=== PATIENT | female | born 1960 | race Caucasian/White ===

== ENCOUNTER 2025-03-19 09:59 | Inpatient (IN) | payer OTHER ==
[2025-03-19] MEDS ORDERED: MORPHINE 4 MG/ML SYR ONE (10:24)
[2025-03-19] MEDS ORDERED: ONDANSETRON 4 MG/2 ML VIAL ONE (10:24)
[2025-03-19 10:37] LABS: Absolute Lymphocytes (CBC) 1.7 K/uL (0.7-4.9); Hematocrit 42.6 % (36.0-45.0); Hemoglobin 14.8 g/dL (12.0-15.0); MCH 34.1 pg (27.0-35.0); MCHC 34.8 g/dL (32.0-36.0); MCV 98.0 fL (80-100); MPV 7.2 fL (7.6-11.3); Nucleated RBC Absolute Count 0.0 (0-0); Nucleated Red Blood Cells % 0.0 % (0-0); RBC Red Blood Cell Count 4.35 M/uL (3.86-4.86); White Blood Count 7.80 thou/uL (4.3-10.9)
--- NOTE | 2025-03-19 10:47 | RAD REPORT ---
EXAM: Chest Single View HISTORY: 65 years Female right rib pain COMPARISON: No prior exams FINDINGS: LUNGS/PLEURA: The lungs are clear. No pleural effusions or pneumothorax. No pulmonary edema. CARDIAC/MEDIASTINUM: The cardiac silhouette is within normal limits. UPPER ABDOMEN: No significant abnormality. BONES: No acute abnormality. LINES/TUBES/OTHER: N/A IMPRESSION: No evidence of acute cardiopulmonary disease.
[2025-03-19 10:54] LABS: ALT/SGPT 33.0 U/L (13-56); AST/SGOT 19.0 U/L (15-37); Albumin 3.6 g/dL (3.4-5.0); Albumin/Globulin Ratio 1.1 (1.1-1.8); Alkaline Phosphatase 82.0 U/L (45-117); Anion Gap 7.2 mEq/L (5.0-15.0); BUN Blood Urea Nitrogen 11.0 mg/dL (7-18); Globulin 3.3 g/dL (2.3-3.5); Glucose Level 115.0 mg/dL (74-106); Lipase 71.0 U/L (13-75); Potassium 3.2 mEq/L (3.5-5.1)
--- NOTE | 2025-03-19 11:16 | RAD REPORT ---
Abdomen Exam Limited: 03/19/2025 11:05 AM CLINICAL HISTORY: ruq pain STUDY: Limited right upper quadrant ultrasound of abdomen. COMPARISON: None. FINDINGS: Liver: Limited evaluation. Hepatic steatosis noted. Bile ducts: No intrahepatic or extrahepatic biliary ductal dilatation. Common bile duct measures 4 mm. Gallbladder: Gallstone in the region of the gallbladder neck. Gallbladder is mildly distended. Gallbl adder wall is borderline thickened. No pericholecystic fluid. No sonographic Pozo sign was reported. IMPRESSION: Cholelithiasis with stone impacted at the gallbladder neck. No sonographic Pozo sign, significant g allbladder wall thickening, or pericholecystic fluid. No overt evidence of acute cholecystitis though early/mild acute cholecystitis would be difficult to exclude. HIDA scan could confirm cystic d uct patency.
[2025-03-19 11:37] LABS: Sqamous Epithelial <5 /HPF (None Seen); Urine Culture Reflex Order NOT NEEDED; Urine Microscopic Reflex YN ORDER UMIC
[2025-03-19] MEDS ORDERED: NA CHLORIDE 0.9% 100 ML ONE (11:55)
[2025-03-19] MEDS ORDERED: PIPERACIL/TAZO 3.375 GM VIAL IV ONE (11:55)
[2025-03-19] MEDS ORDERED: MORPHINE 2 MG/ML SYR ONE (11:55)
[2025-03-19] MEDS ORDERED: NA CHLORIDE 0.9% 1,000 ML ONE (11:55)
--- NOTE | 2025-03-19 11:57 | ER ---
Nurse's Notes [facility] Name: Radha Moralez Age: 65 yrs Sex: Female : 1960 Arrival Date: 03/19/2025 Time: 09:59 Bed 18 Private MD: Diagnosis: Other cholelithiasis without obstruction;Chest pain, unspecified Presentation: 03/19 10:09 Chief complaint: Patient states: R FLANK PAIN x5 DAYS. Coronavirus screen: At this bp time, the client does not indicate any symptoms associated with coronavirus-19. Ebola Screen: No symptoms or risks identified at this time. Initial Sepsis Screen: Does the patient meet any 2 criteria? No. Patient's initial sepsis screen is negative. Does the patient have a suspected source of infection? No. Patient's initial sepsis screen is negative. Risk Assessment: Do you want to hurt yourself or someone else? Patient reports no desire to harm self or others. Onset of symptoms is unknown. 10:09 Method Of Arrival: Ambulatory bp 10:09 Acuity: WILL 3 bp Historical: - Allergies: 10:09 No Known Allergies; bp - Home Meds: 10:09 aspirin 81 mg Oral tablet daily [Active]; Ozempic 2 mg/dose (8 mg/3 mL) subcutaneous bp Pen Injector 2 mg every week [Active]; olmesartan-hydrochlorothiazide 40-12.5 mg oral tablet 1 tab daily [Active]; atorvastatin 10 mg oral tablet 1 tab daily [Active]; - PMHx: 10:09 Hypertensive disorder; bp - PSHx: 10:09 Appendectomy; bp - Immunization history:: Adult Immunizations up to date. - Infectious Disease History:: Denies. - Social history:: Smoking status: Patient reports the use of cigarette tobacco products, unknown amount. Screenin:15 [facility] ED Fall Risk Assessment (Adult) History of falling in the last 3 months, me1 including since admission No falls in past 3 months (0 pts) Confusion or Disorientation No (0 pts) Intoxicated or Sedated No (0 pts) Impaired Gait No (0 pts) Mobility Assist Device Used No (0 pt) Altered Elimination No (0 pt) Score/Fall Risk Level 0 - 2 = Low Risk Maintained a safe environment, Provided non-skid footwear, Hourly rounding (assess needs \T\ fall precautionary measures) done. Abuse screen: Denies threats or abuse. Nutritional screening: No deficits noted. Tuberculosis screening: No symptoms or risk factors identified. Assessment: 10:15 General: Appears uncomfortable, ill, well groomed, well developed, well nourished, me1 Behavior is calm, cooperative, appropriate for age, Reports R FLANK PAIN x5 DAYS. Pain: Complains of pain in right upper quadrant Pain radiates to right flank Pain currently is 6 out of 10 on a pain scale. Quality of pain is described as sharp, Pain began 5 days ago Is continuous. Neuro: Level of Consciousness is awake, alert, obeys commands, Oriented to person, place, time, situation, Appropriate for age. Cardiovascular: Patient's skin is warm and dry. Respiratory: Airway is patent Respiratory effort is even, unlabored, Respiratory pattern is regular, symmetrical. GI: Abdomen is non-distended, Reports upper abdominal pain, nausea, since 5 days ago. : No signs and/or symptoms were reported regarding the genitourinary system. EENT: No signs and/or symptoms were reported regarding the EENT system. Derm: Skin is intact, is healthy with good turgor, Skin is pink, warm \T\ dry. Musculoskeletal: No signs and/or symptoms reported regarding the musculoskeletal system. Circulation, motion, and sensation intact. Range of motion: intact in all extremities. Vital Signs: 10:09 BP 146 / 72; Pulse 79; Resp 16; Temp 97.6; Pulse Ox 100% ; Weight 102.51 kg; Height 5 bp ft. 8 in. ; 11:00 BP 111 / 53; Pulse 72; Resp 18; Pulse Ox 94% ; me1 12:00 BP 108 / 58; Pulse 66; Resp 18; Pulse Ox 97% ; me1 13:00 BP 113 / 55; Pulse 64; Resp 15; Pulse Ox 92% on R/A; me1 14:00 BP 118 / 62; Pulse 60; Resp 16; Pulse Ox 93% on R/A; me1 10:09 Body Mass Index 34.36 (102.51 kg, 172.72 cm) bp ED Course: 10:02 Patient arrived in ED. im 10:02 Hieu Sen MD is Attending Physician. jr11 10:09 Triage completed. bp 10:09 Arm band placed on. bp 10:15 Patient has correct armband on for positive identification. Bed in low position. Call me1 light in reach. Side rails up X2. Provided Education on: POC. Verbalized understanding.. Client placed on continuous cardiac and pulse oximetry monitoring. NIBP monitoring applied. phototypesetting equipment monitor on. Pulse ox on. NIBP on. 10:15 No provider procedures requiring assistance completed. me1 10:19 Juanita Matthew, RN is Primary Nurse. me1 10:33 Initial lab(s) drawn, by me, sent to lab. Inserted saline lock: 22 gauge in right me1 antecubital area, using aseptic technique. 10:38 Chest Single View XRAY In Process Unspecified. EDMS 11:07 US Abdomen Limited In Process Unspecified. EDMS 11:15 Urine collected: clean catch specimen, cloudy. me1 11:47 EKG done, by ED staff, reviewed by Hieu Sen MD. me1 11:51 BNP Sent. me1 11:51 Troponin High Sensitivity Sent. me1 11:55 Brandyn Jimenez MD is Hospitalizing Provider. jr11 14:06 Patient admitted, IV remains in place. me1 Administered Medications: 10:31 Drug: Ondansetron IVP 4 mg IVP once; over 2 minutes Route: IVP; Site: right antecubital;me1 10:53 Follow up: Response: No adverse reaction; Nausea is decreased me1 10:31 Drug: morphine IVP or IV 4 mg IVP once over 4 mins Route: IVP; Infused Over: 4 mins; me1 Site: right antecubital; 10:53 Follow up: Response: No adverse reaction; Pain is decreased me1 12:05 Drug: Piperacillin-Tazobactam IVPB 3.375 grams IVPB once over 60 mins; (mix in NS 100 me1 mL) Route: IVPB; Infused Over: 60 mins; Site: right antecubital; 14:06 Follow up: Response: No adverse reaction; IV Status: Completed infusion me1 12:05 Drug: morphine IVP or IV 2 mg IVP once over 4 mins Route: IVP; Infused Over: 4 mins; me1 Site: right antecubital; 12:23 Follow up: Response: No adverse reaction; Pain is decreased me1 12:05 Drug: NS 0.9% IV 1000 ml IV at 1000 ml once; to be given as a bolus over 60 minutes me1 Route: IV; Rate: 1000 ml; Site: right antecubital; 14:06 Follow up: Response: No adverse reaction; IV Status: Completed infusion me1 Medication: 10:15 VIS not applicable for this client. me1 Outcome: 11:56 Decision to Hospitalize by Provider. lacey 14:06 Admitted to Med/surg accompanied by tech, via wheelchair, room 212, with chart, Report me1 called to tubed up by COREY Beckham, charge nurse 14:06 Condition: stable 14:06 Instructed on the need for admit, 14:07 Patient left the ED. me1 Signatures: Dispatcher [employer] EDClay Sherwood RN RN Hieu Sen MD MD jr11 Brenda Perez Michelle, RN RN me1 Corrections: (The following items were deleted from the chart) 12:24 10:09 Chief complaint: Patient states: R FLANK PAIN x5 DAYS bp me1
--- NOTE | 2025-03-19 11:57 | EDPHYS ---
Physician Documentation [facility] Name: Radha Moralez Age: 65 yrs Sex: Female : 1960 Arrival Date: 03/19/2025 Time: 09:59 Bed 18 Private MD: WATSON Physician Hieu Sen HPI: 03/19 10:16 Chief Complaint: Discomfort under the right breast, extending to the back. History of jr11 Present Illness: The patient presents with discomfort under the right breast, which extends to the back. The discomfort began on Saturday and has been progressively worsening. The patient denies any previous episodes of similar pain. The pain is not influenced by eating. The patient reports taking ibuprofen, which provides some relief but does not eliminate the pain. The patient experienced nausea this morning but has not vomited. Bowel movements are normal, and there is no pain or increased frequency when urinating. Review of Systems: - Positive for nausea this morning. - Reports not having vomiting, abnormal bowel movements, painful or frequent urination, or cough. - ROS otherwise negative. . Historical: - Allergies: 10:09 No Known Allergies; bp - Home Meds: 10:09 aspirin 81 mg Oral tablet daily [Active]; Ozempic 2 mg/dose (8 mg/3 mL) subcutaneous bp Pen Injector 2 mg every week [Active]; olmesartan-hydrochlorothiazide 40-12.5 mg oral tablet 1 tab daily [Active]; atorvastatin 10 mg oral tablet 1 tab daily [Active]; - PMHx: 10:09 Hypertensive disorder; bp - PSHx: 10:09 Appendectomy; bp - Immunization history:: Adult Immunizations up to date. - Infectious Disease History:: Denies. - Social history:: Smoking status: Patient reports the use of cigarette tobacco products, unknown amount. Exam: 10:16 Constitutional: This is a well developed, well nourished patient who is awake, alert, jr11 and in no acute distress. Head/Face: Normocephalic, atraumatic. Eyes: Extra-ocular motions intact. Lids and lashes normal. Conjunctiva and sclera are non-icteric and not injected. Cornea within normal limits. Periorbital areas with no swelling, redness, or edema. ENT: Nares patent. No nasal discharge, no septal abnormalities noted. Oropharynx with no redness, swelling, or masses, exudates, or evidence of obstruction, uvula midline. Mucous membranes moist. Chest/axilla: Normal chest wall appearance and motion. Nontender with no deformity. No lesions are appreciated. Cardiovascular: Regular rate and rhythm with a normal S1 and S2. No gallops, murmurs, or rubs. Normal PMI, no JVD. No pulse deficits. Respiratory: Lungs have equal breath sounds bilaterally, clear to auscultation and percussion. No rales, rhonchi or wheezes noted. No increased work of breathing, no retractions or nasal flaring. Abdomen/GI: TTP RUQ no peritoneal signs Back: No spinal tenderness. No costovertebral tenderness. Full range of motion. Skin: Warm, dry with normal turgor. Normal color with no rashes, no lesions, and no evidence of cellulitis. MS/ Extremity: Pulses equal, no cyanosis. Neurovascular intact. Full, normal range of motion. Neuro: Awake and alert, GCS 15, oriented to person, place, time, and situation. No gross motor or sensory deficits. Vital Signs: 10:09 BP 146 / 72; Pulse 79; Resp 16; Temp 97.6; Pulse Ox 100% ; Weight 102.51 kg; Height 5 bp ft. 8 in. ; 11:00 BP 111 / 53; Pulse 72; Resp 18; Pulse Ox 94% ; me1 12:00 BP 108 / 58; Pulse 66; Resp 18; Pulse Ox 97% ; me1 13:00 BP 113 / 55; Pulse 64; Resp 15; Pulse Ox 92% on R/A; me1 14:00 BP 118 / 62; Pulse 60; Resp 16; Pulse Ox 93% on R/A; me1 10:09 Body Mass Index 34.36 (102.51 kg, 172.72 cm) bp MDM: 10:08 Medical Screening Exam initiated jr11 10:16 Differential diagnosis: Medical Decision Makin. Gallbladder disease: Likely due to jr11 the localization of pain and exacerbation after eating, further testing required. 2. Shingles: Unlikely without rash or typical dermatomal pain but considered due to location of pain. 3. Musculoskeletal pain: Possible due to the nature of the pain, requires ruling out other causes. 4. Peptic ulcer disease: Less likely without specific gastrointestinal symptoms but considered due to abdominal pain. Plan: - Conduct diagnostic imaging and tests to assess the gallbladder. - Consider pain management options. - Monitor symptoms for any changes. - Follow-up consultation based on test results. Data reviewed: vital signs, nurses notes. 11:53 ED course: Dr Garcia will do surgery tomorrow admitted Tony, EKG interpreted by me shows jrBrendan left axis deviation normal axis normal intervals no acute ST changes. ED course: Ultrasound interpreted by me shows gallstone.. 03/19 10:10 Order name: CBC with Diff; Complete Time: 11:20 [facility] 03/19 10:10 Order name: CMP; Complete Time: 11:20 [facility] 03/19 10:10 Order name: Lipase; Complete Time: 11:20 [facility] 03/19 10:16 Order name: UA Rfx Evert Cult if indicated; Complete Time: 11:38 [facility] 03/19 11:39 Order name: Troponin High Sensitivity [facility] 03/19 11:39 Order name: BNP [facility] 03/19 13:07 Order name: Basic Metabolic Panel EDMS 03/19 13:07 Order name: Basic Metabolic Panel EDMS 03/19 13:07 Order name: Basic Metabolic Panel EDMS 03/19 13:07 Order name: Basic Metabolic Panel EDMS 03/19 13:07 Order name: CBC with Automated Diff EDMS 03/19 13:07 Order name: CBC with Automated Diff EDMS 03/19 13:07 Order name: CBC with Automated Diff EDMS 03/19 13:07 Order name: CBC with Automated Diff EDMS 03/19 13:07 Order name: Lipid Profile EDMS 03/19 13:07 Order name: Lipid Profile EDMS 03/19 13:07 Order name: Magnesium EDMS 03/19 13:07 Order name: Magnesium EDMS 03/19 13:07 Order name: Magnesium EDMS 03/19 13:07 Order name: Magnesium EDMS 03/19 13:07 Order name: Phosphorus EDMS 03/19 13:07 Order name: Phosphorus EDMS 03/19 13:07 Order name: Phosphorus EDMS 03/19 13:07 Order name: Phosphorus EDMS 03/19 13:07 Order name: T4 Free EDMS 03/19 13:07 Order name: T4 Free EDMS 03/19 13:07 Order name: Thyroid Stimulating Hormone EDMS 03/19 13:08 Order name: Thyroid Stimulating Hormone EDMS 03/19 10:10 Order name: US Abdomen Limited; Complete Time: 11:20 jr11 03/19 10:10 Order name: Chest Single View XRAY; Complete Time: 11:20 [facility] 03/19 13:07 Order name: CONS Physician Consult [facility] 03/19 10:10 Order name: IV Saline Lock; Complete Time: 11:54 11 03/19 10:10 Order name: Labs collected and sent; Complete Time: 11:54 11 Administered Medications: 10:31 Drug: Ondansetron IVP 4 mg IVP once; over 2 minutes Route: IVP; Site: right antecubital;me1 10:53 Follow up: Response: No adverse reaction; Nausea is decreased me1 10:31 Drug: morphine IVP or IV 4 mg IVP once over 4 mins Route: IVP; Infused Over: 4 mins; me1 Site: right antecubital; 10:53 Follow up: Response: No adverse reaction; Pain is decreased me1 12:05 Drug: Piperacillin-Tazobactam IVPB 3.375 grams IVPB once over 60 mins; (mix in NS 100 me1 mL) Route: IVPB; Infused Over: 60 mins; Site: right antecubital; 14:06 Follow up: Response: No adverse reaction; IV Status: Completed infusion me1 12:05 Drug: morphine IVP or IV 2 mg IVP once over 4 mins Route: IVP; Infused Over: 4 mins; me1 Site: right antecubital; 12:23 Follow up: Response: No adverse reaction; Pain is decreased me1 12:05 Drug: NS 0.9% IV 1000 ml IV at 1000 ml once; to be given as a bolus over 60 minutes me1 Route: IV; Rate: 1000 ml; Site: right antecubital; 14:06 Follow up: Response: No adverse reaction; IV Status: Completed infusion me1 Disposition Summary: 03/19/25 11:56 Hospitalization Ordered Notes: Hospitalization Status: Observation jr11 Provider: Brandyn Jimenez [facility] Location: Telemetry/MedSurg (observation) [facility] Condition: Stable jr11 Problem: an acute exacerbation jr11 Symptoms: are unchanged jr11 Bed/Room Type: Standard [facility] Room Assignment: 212(03/19/25 13:15) em1 Diagnosis - Other cholelithiasis without obstruction jr11 - Chest pain, unspecified jr11 Forms: - Medication Reconciliation Form jr11 - SBAR form jr11 - Leadership Thank You Letter jr11 Signatures: Dispatcher [employer] EDVinnie Catalan em1 Clay Malik, RN RN Hieu Sen MD MD jr11 Juanita Matthew RN RN me1 Corrections: (The following items were deleted from the chart) 10:17 10:17 UA Rfx Evert Cult if indicated+U.LAB.BRZ ordered. EDMS EDMS 11:39 11:39 Troponin High Sensitivity+C.LAB.BRZ ordered. EDMS EDMS 11:39 11:39 PROBNP+C.LAB.BRZ ordered. EDMS EDMS 13:15 11:56 jr11 em1
[2025-03-19] MEDS ORDERED: SODIUM CHLORIDE 0.9% 10ML INJ IV PRN (13:00)
[2025-03-19] MEDS ORDERED: ONDANSETRON 4 MG/2 ML VIAL IV PRN (13:00)
[2025-03-19] MEDS ORDERED: ACETAMINOPHEN 325 MG TABLET PO PRN (13:00)
[2025-03-19 14:29] VITALS: BMI 34.3
--- NOTE | 2025-03-19 15:02 | P.HP ---
Certification for Inpatient Patient admitted to: Observation With expected LOS: <2 Midnights Patient will require the following post-hospital care: None Practitioner: I am a practitioner with admitting privileges, knowledge of patient current condition, hospital course, and medical plan of care. Services: Services provided to patient in accordance with Admission requirements found in Title 42 Section 412.3 of the Code of Federal Regulations <Veena Lua - Last Filed: 03/19/25 14:52> Patient History Date of Service: 03/19/25 Reason for admission: Acute cholecystitis History of Present Illness: Radha Moralez is a 65 year old female with Pmhx HTN, HLD, DM- IDDM, Smoking abuse who presents to the ED with chief complaint of Abdominal pain associated with nausea, vomiting, and inability to sleep since Saturday. She reports eating a yogurt this morning and did not feel well eating it. On evaluation, RUQ tender to palpation, she is lethargic and uncomfortable. Laboratory evaluation significant for T. bili 1.2, potassium 3.2, serum glucose 115. Chest x-ray report "No evidence of acute cardiopulmonary disease." Ultrasound abdomen reports "Cholelithiasis with stone impacted at the gallbladder neck. No sonographic Pozo sign, significant gallbladder wall thickening, or pericholecystic fluid. No overt evidence of acute cholecystitis though early/mild acute cholecystitis would be difficult to exclude. HIDA scan could confirm cystic duct patency." Radha be admitted to the hospital service for further evaluation and treatment of acute cholecystitis, Dr. WASHINGTON Seph consulted - Past Medical/Surgical History Has patient received pneumonia vaccine in the past: No -: Htn -: HLD -: DM type 2 -: Smoking abuse -: Appendectomy -: L lymphectomy - Family History Family History: Reviewed- Non-Contributory - Social History Smoking Status: Current every day smoker Alcohol use: No CD- Drugs: No Place of Residence: Home <Veena Lua - Last Filed: 03/19/25 14:52> Date of Service: 03/19/25 <Brandyn Jimenez - Last Filed: 03/19/25 19:28> Allergies No Known Allergies Allergy (Unverified 03/19/25 13:00) Review of Systems Other: per HPI <Veena Lua - Last Filed: 03/19/25 14:52> Physical Examination - Vital Signs Temperature: 97.6 F Blood Pressure: 118/62 Pulse: 60 Respirations: 16 - Physical Exam General: Alert, Oriented x3, Other (drowsy) HEENT: Atraumatic, Normocephalic Neck: Supple, 2+ carotid pulse no bruit Respiratory: Clear to auscultation bilaterally, Normal air movement Cardiovascular: Normal pulses, Regular rate/rhythm, Normal S1 S2 Gastrointestinal: Normal bowel sounds, Other (Soft on palpation), Tenderness Musculoskeletal: No clubbing Integumentary: No rashes Neurological: Normal speech, Normal tone - Studies Laboratory Data (last 24 hrs) 03/19/25 03/19/25 10:30 10:30 WBC 7.80 Hgb 14.8 Hct 42.6 Plt Count 247 Sodium 137 Potassium 3.2 L BUN 11 Creatinine 0.80 Glucose 115 H Total Bilirubin 1.2 H AST 19 ALT 33 Alkaline Phosphatase 82 Lipase 71 <Veena Lua - Last Filed: 03/19/25 14:52> - Studies Laboratory Data (last 24 hrs) 03/19/25 03/19/25 10:30 10:30 WBC 7.80 Hgb 14.8 Hct 42.6 Plt Count 247 Sodium 137 Potassium 3.2 L BUN 11 Creatinine 0.80 Glucose 115 H Total Bilirubin 1.2 H AST 19 ALT 33 Alkaline Phosphatase 82 Lipase 71 <Brandyn Jimenez - Last Filed: 03/19/25 19:28> Assessment and Plan - Plan Assessment and Plan Acute cholecystitis -Dr. Freeman consulted -NPO to rest the digestive system, will re-evaluate in the AM -Zosyn IV -pain control -zofran -Monitor LFT - gentle IVF Hypokalemia -K 3.2 -Replace IV -Monitor in AM labs DM- IDDM -A1C in the AM -Will hold insulin while NPO -currently takes ozempic HTN HLD Smoking abuse -Continue home medication as appropriate, when taking PO DVT ppx SCD Full code LOS 24 hour OBS Discharge Plan: Home Plan to discharge in: 24 Hours - Advance Directives Does patient have a Living Will: Yes Does patient have a Durable POA for Healthcare: Yes Time Spent Managing Pts Care (In Minutes): 55 <Veena Lua - Last Filed: 03/19/25 14:52> Physician Review: Patient Assessed, Agree with Above Assessment and Plan <Brandyn Jimenez - Last Filed: 03/19/25 19:28>
[2025-03-19] MEDS: NA CHLORIDE 0.9% 1,000 ML IV SCH (15:31)
[2025-03-19] MEDS: KCL 20 MEQ/100 mL IVPB 20 MEQ/100 ML BAG IV SCH (16:18)
--- NOTE | 2025-03-19 17:01 | P.CNS ---
Date of Consult: 03/19/25 Chief Complaint: Acute cholecystitis History of Present Illness: Patient with PMH of HTN, HLD presented with abdominal pain, RUQ for the last few days, denies chest pain, no palpitations, no syncope, no breathing problems. Allergies No Known Allergies Allergy (Unverified 03/19/25 13:00) Home medications list reviewed: Yes Home Medications: Aspirin 1 tab PO DAILY 03/19/25 Atorvastatin Calcium 1 tab PO DAILY 03/19/25 Olmesartan/Hydrochlorothiazide [Olmesartan-Hctz 40-12.5 mg Tab] 1 each PO DAILY 03/19/25 Semaglutide [Ozempic] 2 mg SQ EVERY 7TH DAY 03/19/25 - Past Medical/Surgical History -: Htn -: HLD -: DM type 2 -: Smoking abuse -: Appendectomy -: L lymphectomy - Social History Smoking Status: Current every day smoker Alcohol use: No CD- Drugs: No Place of Residence: Home Review of Systems 10-point ROS is otherwise unremarkable Physical Examination Temp Pulse Resp BP Pulse Ox 98.0 F 62 12 145/67 H 100 03/19/25 16:00 03/19/25 16:00 03/19/25 16:00 03/19/25 16:00 03/19/25 16:00 General: Alert, In no apparent distress HEENT: Atraumatic, PERRLA, Mucous membr. moist/pink, EOMI, Sclerae nonicteric Neck: Supple, 2+ carotid pulse no bruit, No LAD, Without JVD or thyroid abnormality Respiratory: Clear to auscultation bilaterally, Normal air movement Cardiovascular: Regular rate/rhythm, Normal S1 S2 Gastrointestinal: Normal bowel sounds, No tenderness Musculoskeletal: No tenderness Integumentary: No rashes Neurological: Normal gait, Normal speech, Normal tone, Normal affect Lymphatics: No axilla or inguinal lymphadenopathy Laboratory Data (last 24 hrs) 03/19/25 03/19/25 10:30 10:30 WBC 7.80 Hgb 14.8 Hct 42.6 Plt Count 247 Sodium 137 Potassium 3.2 L BUN 11 Creatinine 0.80 Glucose 115 H Total Bilirubin 1.2 H AST 19 ALT 33 Alkaline Phosphatase 82 Lipase 71 - Problems (1) Chest pain Current Visit: Yes Status: Acute Plan: Patient denies having chest pain and she say it was an anxiety attack EKG reviewed and it is normal Troponin pending, if negative then continue to check two more sets 6 hours apart if all negative then no further cardiac work up needed. (2) HTN (hypertension) Current Visit: Yes Status: Acute Plan: continue patient home medications continue to monitor and control pain. (3) HLD (hyperlipidemia) Current Visit: Yes Status: Acute Plan: Continue lipitor lipid panel as outpatient in 6-8 weeks. (4) Preoperative clearance Current Visit: Yes Status: Acute Plan: Patient is active and denies having any cardiac problems patient is cleared as low cardiac risk for surgery. No further cardiac work up needed.
[2025-03-19 17:40] LABS: NT PRO-BNP 180.0 pg/mL (<125); Troponin High Sensitivity 10.6 pg/mL (<58.9)
[2025-03-19] MEDS: PIPER TAZO 3.375 GM in NA CHLORIDE 0.9% 100 ML IV SCH (18:18)
[2025-03-19] MEDS: ONDANSETRON 4 MG/2 ML VIAL IV PRN (20:59)
[2025-03-19] MEDS: MORPHINE 2 MG/ML SYR IV PRN (20:59)
[2025-03-19] MEDS: PANTOPRAZOLE 40 MG INJ IVP SCH (20:59)
[2025-03-20 06:39] LABS: Absolute Lymphocytes (CBC) 0.8 K/uL (0.7-4.9); Hematocrit 39.2 % (36.0-45.0); Hemoglobin 13.8 g/dL (12.0-15.0); MCH 34.4 pg (27.0-35.0); MCHC 35.1 g/dL (32.0-36.0); MCV 98.1 fL (80-100); MPV 7.4 fL (7.6-11.3); Nucleated RBC Absolute Count 0.0 (0-0); Nucleated Red Blood Cells % 0.0 % (0-0); RBC Red Blood Cell Count 4.00 M/uL (3.86-4.86); White Blood Count 6.00 thou/uL (4.3-10.9)
[2025-03-20 06:45] LABS: ALT/SGPT 121.0 U/L (13-56); AST/SGOT 86.0 U/L (15-37); Albumin 3.1 g/dL (3.4-5.0); Albumin/Globulin Ratio 1.1 (1.1-1.8); Alkaline Phosphatase 103.0 U/L (45-117); Anion Gap 6.8 mEq/L (5.0-15.0); BUN Blood Urea Nitrogen 8.0 mg/dL (7-18); Globulin 2.8 g/dL (2.3-3.5); Glucose Level 103.0 mg/dL (74-106); HDL Cholesterol 42.0 mg/dL (40-60); LDL Cholesterol, Calculated 55.0 mg/dL (<130); LDL Cholesterol,Calc NonReport 55.0; Magnesium 2.1 mg/dL (1.6-2.4); Potassium 3.8 mEq/L (3.5-5.1); Thyroid Stimulating Hormone 0.573 uIU/mL (0.358-3.740)
[2025-03-20] MEDS: ASPIRIN EC 81 MG TAB PO SCH (09:00)
[2025-03-20] MEDS ORDERED: HYDROCHLOROTHIAZIDE PO SCH (09:00)
[2025-03-20] MEDS ORDERED: HOME MED 1 EA UNK (Aspirin [Aspirin] 81 MG Tablet) PO SCH (09:00)
[2025-03-20] MEDS ORDERED: [UNRECOGNIZED DRUG - OTHER] PO SCH (09:00)
[2025-03-20] MEDS: ATORVASTATIN 10 MG TAB PO SCH (09:00)
[2025-03-20] MEDS ORDERED: OLMESARTAN PO SCH (09:00)
[2025-03-20] MEDS: VALSARTAN 160 MG TAB PO SCH (09:00)
[2025-03-20] MEDS: NA CHLORIDE 0.9% 1,000 ML ONE (09:00)
[2025-03-20] MEDS ORDERED: ROCURONIUM 50 MG/5 ML VIAL IV ONE (09:45)
[2025-03-20] MEDS ORDERED: FENTANYL CITR 100 MCG/2 ML ONE ×2 (09:45→10:19)
[2025-03-20] MEDS ORDERED: LIDOCAINE 2% MPF 5 ML VIAL ONE (09:45)
[2025-03-20] MEDS ORDERED: MIDAZOLAM HCL 2 MG/2 ML INJ ONE (09:46)
[2025-03-20] MEDS: LIDOCAINE HCL/EPINEPHRINE 20 ML MDV ONE (10:09)
[2025-03-20] MEDS ORDERED: GLYCOPYRROLATE 0.2 MG/ML SYR ONE (10:21)
[2025-03-20] MEDS ORDERED: ONDANSETRON 4 MG/2 ML VIAL ONE (10:21)
[2025-03-20] MEDS ORDERED: KETOROLAC 30 MG/ML INJ ONE (10:21)
[2025-03-20] MEDS ORDERED: NEOSTIGMINE 1 MG/ML -10 ML VIAL ONE (10:21)
--- NOTE | 2025-03-20 10:44 | P.OP ---
Preoperative diagnosis: Cholelithaisis with cholecystitis Postoperative diagnosis: Cholelithaisis with cholecystitis Primary procedure: Laparoscopic Cholecystectomy with ICG Cholangiography Anesthesia: GETA + Local Estimated blood loss: <5cc Specimen: Gallblader Findings: Ventral hernias - several, distended GB, short cystic duct, dense adhesions Complications: None Transferred to: Recovery Room Condition: Good
--- NOTE | 2025-03-20 10:58 | CON ---
Date of Consultation: 03/19/2025 Brief History Of Present Illness: The patient is a 65-year-old woman who presents to the hospital [facility] complaints of right upper quadrant abdominal pain. She has had this intermittently off and on for several months, but it got significantly worse over the past few days. As such, she came to the [facility] room with the above-stated complaints. She does have a past medical history of multiple medic al issues. Her pain was predominantly located in the right upper quadrant with some radiation throug h the back and she did have some radiation to the left upper chest area as well and into the esophage al area; however, the pain rests predominantly in the right lower quadrant. She has had as described several episodes that were never to this level of acuity associated with fatty greasy foods. After taking pain medications, she feels significantly better. The last thing she ate prior to her pain on set was yogurt. Past Medical History: Significant for hypertension, hyperlipidemia, diabetes. She smokes heavily. Past Surgical History: Includes appendectomy, left lymphadenectomy. Family History: Noncontributory. Social History: She smokes cigarettes a pack a day for greater than 30+ years. She denies alcohol o r recreational drug use. Review of Systems: A 10-point review of systems other than HPI, denies. Physical Examination: General: At the time of my examination, she is awake, alert, oriented. Psychiatric: She is appropriate, conversive. HEENT: She is normocephalic. Sclerae anicteric. Mucous membranes are moist. Oropharynx clear. Neck: Supple. No JVD. Chest: Normal to expansion and excursion. Cardiovascular: Regular rate and rhythm. Pulmonary: Clear to auscultation bilaterally. Abdomen: Soft with positive right upper quadrant tenderness to palpation. Positive Pozo sign. Extremities: No clubbing, cyanosis, or edema. Skin: Warm and dry. Laboratory Data: Reveals a white blood cell count of 7.8, hemoglobin is 14.8, hematocrit of 42.6, pl atelet count was 247, neutrophils were 67%. Her sodium 137, potassium 3.2, chloride 104, carbon diox jose is 29, BUN 11, creatinine 0.8, glucose is 115, calcium is 9.0, total bilirubin 1.2, AST 19, ALT 3 3, alkaline phosphatase is 82. Troponin high sensitivity 10.8 and proBNP of 180. Lipase is 71. She had imaging performed as well, which was officially read as cholelithiasis with a stone impacted gal lbladder neck. No sonographic Pozo sign, significant gallbladder wall thickening or pericholecysti c fluid. No overt evidence of acute cholecystitis to early mild acute cholecystitis would be difficu lt to exclude. Assessment And Plan: This is a 65-year-old woman who comes in with signs and symptoms of acute calcu lous cholecystitis. 1. IV fluid hydration. 2. Antibiotic coverage. 3. I have explained the risks, benefits, and alternatives of laparoscopic, possible open cholecystect tricia with Indocyanine green cholangiogram with possible contrast cholangiography, and indicated proced ures. Risks include, but not limited to bleeding, infection, damage to surrounding tissues, injury t o bile ducts, intestines, blood clots, heart attack, strokes, and other unforeseen complications in t he perioperative period. The patient displayed understanding of the above-stated plan and agreed to proceed as indicated. Thank you for this interesting consult. LUZ/JAZ Voice ID: [id number] Report ID: [id number]
[2025-03-20 11:30] VITALS: O2SAT 94
[2025-03-20] MEDS: HYDROCODONE/APAP 5/325 MG TAB PO PRN (11:55)
--- NOTE | 2025-03-20 12:23 | OP ---
Date of Procedure: 03/20/2025 Surgeon: Justin Freeman MD, Preoperative Diagnoses: Cholelithiasis, cholecystitis. Postoperative Diagnoses: Cholelithiasis, cholecystitis. Procedure Performed: Laparoscopic cholecystectomy with indocyanine green cholangiography. Anesthesia: General endotracheal plus local 1% lidocaine with epinephrine. Estimated Blood Loss: 5 cc. Specimen: 1. Gallbladder findings. Multiple ventral hernias were noted at the supraumbilical, infraumbilical, and periumbilical positions, which seemed incisional from previous surgery. 2. Distended gallbladder. 3. Short cystic duct. 4. Dense adhesions from the stomach to the anterior surface of the gallbladder as well as dense oment al adhesions encasing the gallbladder as well. Complications: None. Disposition: The patient was transferred to recovery room in good condition. Procedure In Detail: After informed consent was obtained, the patient was brought to the operating r oom, prepped in the usual sterile fashion after adequate anesthesia achieved, anesthetized the area i n the supraumbilical position down to subcutaneous tissues. A 5 mm 0-degree optical trocar was intro duced into the abdomen without incident or complication. Insufflation obtained to 15 mmHg, at this t kaz. No injury to vital structures upon entry into the abdomen. There were dense omental adhesions to the anterior abdominal wall in the infraumbilical position. These were not encountered during the entry into the abdomen, but they were visualized. Two additional trocars were placed, one in the ep igastrium and one in the right upper quadrant, both of these were 5 mm trocars, placed under direct v ision without incident or complication. The umbilical trocar was then upsized to a 12 mm under direc t vision without incident or complication. The patient was then positioned in the head up, right-zachary e up position. Ratcheted graspers were used to grasp the patient's gallbladder, placed it towards th e patient's right shoulder. Dissection continued down the gallbladder to the Bunny pouch after re moving dense adhesions of the anterior surface of the gallbladder as well as from the stomach using a combination of minimal electrocautery and blunt dissection. I skeletonized 2 structures, identified the both cystic duct, cystic artery. Critical view of safety was obtained at this point. The cystic duct was found to be short with adequate landing zone. Indocyanine green cholangiography confirmed the confluence of the cystic duct, common duct junction. Adequate length from the common duct to all ow for transection safely without stenosis of the common duct. At this point, I proceeded to transec t the cystic common duct after double titanium clips were placed on both doubly on the proximal side and singly on the distal side of both cystic duct, cystic artery after the structures were ligated, I removed the gallbladder from the hepatic fossa without incident or complication using electrocautery . Gallbladder was placed in EndoCatch bag, removed through the umbilical trocar site, sent off for p athologic examination. There was no spillage of bile throughout the procedure. At this point, I pro ceeded to copiously irrigate the abdomen. I did Indocyanine Green cholangiography once again to ensu re there was no spillage of bile at the end of procedure, which was none. No additional hemostatic w as required. At this point, I proceeded to place the patient back in neutral position. The 12 mm tr ocar site was then closed using a Baljinder-Jillian suture passer with 0 Vicryl in uninterrupted fashio n with good approximation of tissue. The abdomen was then desufflated under direct vision without in cident or complication. All remaining trocars were removed. All skin sites were then copiously irri gated and closed with a 4-0 Monocryl in a running fashion. Dermabond was placed over top. The sola ent tolerated the procedure without incident or complication, transferred to PACU in good condition. All counts were correct at the end of the case. LUZ/JAZ Voice ID: [id number] Report ID: [id number]
--- NOTE | 2025-03-20 16:21 | P.PN ---
Date of Service: 03/20/25 Subjective Awake, complaining of increased abdominal pain through the night LFTs increased Surgery this morning, will monitor overnight and discharge in the morning ROS 10 point ROS as noted above, otherwise negative Physical Exam General: Alert, Oriented x3, afebrile HEENT: Atraumatic, Normocephalic Neck: Supple, 2+ carotid pulse no bruit Respiratory: Clear BBS, Normal air movement Cardiovascular: Normal pulses, Regular rate/rhythm, Normal S1 S2 Gastrointestinal: Hypoactive other (Soft on palpation), Tenderness Musculoskeletal: No clubbing Integumentary: No rashes Neurological: Normal speech, Normal tone Vitals Reviewed Problem list Acute cholecystitis Hypokalemia DM- IDDM HTN HLD Smoking abuse Assessment and Plan Acute cholecystitis Transaminitis -Dr. Freeman consulted -NPO to rest the digestive system, will re-evaluate in the AM -Continue Zosyn IV -pain control -zofran -Monitor LFT - gentle IVF Hypokalemia -K 3. 8 -Replace IV -Monitor in AM labs DM- IDDM -A1C in the AM -Will hold insulin while NPO -currently takes ozempic HTN HLD Smoking abuse -Continue home medication as appropriate, when taking PO DVT ppx SCD Full code LOS 24 hour OBS Discharge Plan: Home Plan to discharge in: 24 Hours Time Spent Managing Pts Care (In Minutes): 35 <Veena Lua - Last Filed: 03/20/25 16:18> I have personally seen and evaluated the patient. I have reviewed the history, physical exam findings, and assessment provided by Veena Lua ANALYTICS CONSULTANT. I agree wi th the plan of care as documented <Brandyn Jimenez - Last Filed: 03/21/25 06:42>
[2025-03-21 04:29] LABS: Absolute Lymphocytes (CBC) 0.7 K/uL (0.7-4.9); Hematocrit 39.6 % (36.0-45.0); Hemoglobin 13.8 g/dL (12.0-15.0); MCH 33.9 pg (27.0-35.0); MCHC 34.9 g/dL (32.0-36.0); MCV 97.3 fL (80-100); MPV 7.1 fL (7.6-11.3); Nucleated RBC Absolute Count 0.0 (0-0); Nucleated Red Blood Cells % 0.0 % (0-0); RBC Red Blood Cell Count 4.07 M/uL (3.86-4.86); White Blood Count 12.60 thou/uL (4.3-10.9)
[2025-03-21 04:46] LABS: ALT/SGPT 102.0 U/L (13-56); AST/SGOT 50.0 U/L (15-37); Albumin 3.2 g/dL (3.4-5.0); Albumin/Globulin Ratio 1.0 (1.1-1.8); Alkaline Phosphatase 95.0 U/L (45-117); Anion Gap 9.0 mEq/L (5.0-15.0); BUN Blood Urea Nitrogen 11.0 mg/dL (7-18); Globulin 3.2 g/dL (2.3-3.5); Glucose Level 128.0 mg/dL (74-106); Magnesium 2.1 mg/dL (1.6-2.4); Potassium 4.0 mEq/L (3.5-5.1)
[2025-03-21 07:04] LABS: White Blood Cell Scan OK (OK)
[2025-03-21 07:05] LABS: Blood Morphology Comment NOT SEEN (NOT SEEN)
--- NOTE | 2025-03-21 08:44 | P.DS ---
Admission Date: 03/20/25 Discharge Date: 03/21/25 Reason for Admission: Acute cholecystitis Brief History of Present Illness: Diagnosis Acute cholecystitis Hypokalemia DM- IDDM HTN HLD Smoking abuse HPI 03/19/25 Radha Moralez is a 65 year old female with Pmhx HTN, HLD, DM- IDDM, Smoking abuse who presents to the ED with chief complaint of Abdominal pain associated with nausea, vomiting, and inability to sleep since Saturday. She reports eating a yogurt this morning and did not feel well eating it. On evaluation, RUQ tender to palpation, she is lethargic and uncomfortable. Laboratory evaluation significant for T. bili 1.2, potassium 3.2, serum glucose 115. Chest x-ray report "No evidence of acute cardiopulmonary disease." Ultrasound abdomen reports "Cholelithiasis with stone impacted at the gallbladder neck. No sonographic Pozo sign, significant gallbladder wall thickening, or pericholecystic fluid. No overt evidence of acute cholecystitis though early/mild acute cholecystitis would be difficult to exclude. HIDA scan could confirm cystic duct patency." Radha be admitted to the hospital service for further evaluation and treatment of acute cholecystitis, Dr. W[place] Seph consulted Hospital Course: Patient was admitted with acute cholecystitis with impacted stone at the neck of the gallbladder. was consulted and took her to surgery the next morning, 03/20, after LFTs had elevated considerably. She tolerated the procedure well and has been able to tolerate p.o. diet as well as ambulating independently. Dr. Freeman has cleared her for discharge, LFTs have reduced, and she will follow-up with him outpatient. Augmentin has been prescribed. Physical Exam General: AAO x3, afebrile HEENT: Atraumatic, Normocephalic Neck: Supple, 2+ carotid pulse no bruit Respiratory: Clear BBS, on room air Cardiovascular: NSR, Normal S1 S2 Gastrointestinal: Hypoactive other (Soft on palpation), incisions approximated, dressing CDI Musculoskeletal: No clubbing Integumentary: No rashes Neurological: Normal speech, Normal tone <Veena Lua - Last Filed: 03/21/25 10:04> Admission Date: 03/20/25 Discharge Date: 03/21/25 <Brandyn Jimenez - Last Filed: 03/21/25 16:14> Disposition: ROUTINE DISCHARGE Discharge Condition: GOOD Vital Signs/Physical Exam: Temp Pulse Resp BP Pulse Ox 98.5 F 73 18 140/66 98 03/21/25 04:00 03/21/25 04:00 03/21/25 04:00 03/21/25 04:00 03/21/25 04:00 Laboratory Data at Discharge: WBC 12.60 thou/uL (4.3-10.9) H 03/21/25 04:04 Hgb 13.8 g/dL (12.0-15.0) 03/21/25 04:04 Hct 39.6 % (36.0-45.0) 03/21/25 04:04 Plt Count 205 thou/uL (152-406) 03/21/25 04:04 Sodium 140 mEq/L (136-145) 03/21/25 04:04 Potassium 4.0 mEq/L (3.5-5.1) 03/21/25 04:04 BUN 11 mg/dL (7-18) 03/21/25 04:04 Creatinine 0.59 mg/dL (0.55-1.02) 03/21/25 04:04 Glucose 128 mg/dL (74-106) H 03/21/25 04:04 Phosphorus 2.6 mg/dL (2.5-4.9) 03/21/25 04:04 Magnesium 2.1 mg/dL (1.6-2.4) 03/21/25 04:04 Total Bilirubin 0.8 mg/dL (0.2-1.0) 03/21/25 04:04 AST 50 U/L (15-37) H 03/21/25 04:04 ALT 102 U/L (13-56) H 03/21/25 04:04 Alkaline Phosphatase 95 U/L (45-117) 03/21/25 04:04 Triglycerides 96 mg/dL (<150) 03/20/25 05:24 Cholesterol 116 mg/dL (<200) 03/20/25 05:24 HDL Cholesterol 42 mg/dL (40-60) 03/20/25 05:24 Cholesterol/HDL Ratio 2.76 03/20/25 05:24 Lipase 71 U/L (13-75) 03/19/25 10:30 <Veena Lua - Last Filed: 03/21/25 10:04> Vital Signs/Physical Exam: Temp Pulse Resp BP Pulse Ox 98.1 F 64 18 162/74 H 99 03/21/25 08:00 03/21/25 08:00 03/21/25 08:00 03/21/25 08:00 03/21/25 08:00 Laboratory Data at Discharge: WBC 12.60 thou/uL (4.3-10.9) H 03/21/25 04:04 Hgb 13.8 g/dL (12.0-15.0) 03/21/25 04:04 Hct 39.6 % (36.0-45.0) 03/21/25 04:04 Plt Count 205 thou/uL (152-406) 03/21/25 04:04 Sodium 140 mEq/L (136-145) 03/21/25 04:04 Potassium 4.0 mEq/L (3.5-5.1) 03/21/25 04:04 BUN 11 mg/dL (7-18) 03/21/25 04:04 Creatinine 0.59 mg/dL (0.55-1.02) 03/21/25 04:04 Glucose 128 mg/dL (74-106) H 03/21/25 04:04 Phosphorus 2.6 mg/dL (2.5-4.9) 03/21/25 04:04 Magnesium 2.1 mg/dL (1.6-2.4) 03/21/25 04:04 Total Bilirubin 0.8 mg/dL (0.2-1.0) 03/21/25 04:04 AST 50 U/L (15-37) H 03/21/25 04:04 ALT 102 U/L (13-56) H 03/21/25 04:04 Alkaline Phosphatase 95 U/L (45-117) 03/21/25 04:04 Triglycerides 96 mg/dL (<150) 03/20/25 05:24 Cholesterol 116 mg/dL (<200) 03/20/25 05:24 HDL Cholesterol 42 mg/dL (40-60) 03/20/25 05:24 Cholesterol/HDL Ratio 2.76 03/20/25 05:24 Lipase 71 U/L (13-75) 03/19/25 10:30 <Brandyn Jimenez - Last Filed: 03/21/25 16:14> Diet: [place] Activity: No lifting more than 10 lbs <Veena Lua - Last Filed: 03/21/25 10:04> <Brandyn Jimenez - Last Filed: 03/21/25 16:14> Home Medications: Aspirin 1 tab PO DAILY 03/19/25 Atorvastatin Calcium 1 tab PO DAILY 03/19/25 Olmesartan/Hydrochlorothiazide [Olmesartan-Hctz 40-12.5 mg Tab] 1 each PO DAILY 03/19/25 Semaglutide [Ozempic] 2 mg SQ EVERY 7TH DAY 03/19/25 Amox/Clavulanate [Augmentin 875-125 Tab] 875 mg PO BID 5 Days #10 tab 03/21/25 New Medications: Amox/Clavulanate [Augmentin 875-125 Tab] 875 mg PO BID 5 Days #10 tab Physician Discharge Instructions: 1. Please call and schedule a follow-up appointment with your PCP in 3-5 days - Please follow-up with your PCP for medication refills/adjustments 2. Please call and schedule a follow-up appointment with Dr. Freeman in one week 3. Continue regular diet 4. activity restrictions do not lift greater than 10 pounds for five days 5. Return to the ED if symptoms worsen New medications Augmentin 875 mg twice daily x 5 days Followup: Justin Freeman MD [ACTIVE - CAN ADMIT] - Baltazar Turner MD [Primary Care Provider] -
[2025-03-21 08:54] VITALS: BP 162/74; TEMP 98.1
== END 2025-03-21 10:54 | disposition home or self-care (01) | DRG 419 ==
LOC: ER 09:59 → ERHOLD 13:00 → 2ND 13:46 → OBSVTOIN 03-20 17:11
PROVIDERS: ADMIT Family Medicine; ATTEND Family Medicine
PROC: BF52200 Other Imaging of Gallbladder using Fluorescing Agent, Indocyanine Green Dye, Intraoperative (ICD-10-PCS; 2025-03-20)
PROC: 0FT44ZZ Resection of Gallbladder, Percutaneous Endoscopic Approach (ICD-10-PCS; principal; 2025-03-20 09:30)
DX: K80.00 Calculus of gallbladder with acute cholecystitis without obstruction (principal); I10 Essential (primary) hypertension; E87.6 Hypokalemia; E78.5 Hyperlipidemia, unspecified; E11.9 Type 2 diabetes mellitus without complications; K43.9 Ventral hernia without obstruction or gangrene; F17.210 Nicotine dependence, cigarettes, uncomplicated; R74.01 Elevation of levels of liver transaminase levels; Z79.82 Long term (current) use of aspirin; Z90.49 Acquired absence of other specified parts of digestive tract; Z79.85 Long-term (current) use of injectable non-insulin antidiabetic drugs; Z79.899 Other long term (current) drug therapy
CPT/HCPCS: 36415; 71045; 76705; 80053; 80061; 81001; 82947; 83036; 83690; 83735; 83880; 84100; 84439; 84443; 84484; 85025; 88304; 93005; 96365; 96366; 96375; 99285; G0378; J1100; J2003; J2250; J2270; J2405; J2470; J2543; J2704; J2710; J3010; J3480; J7030